=== PATIENT | male | born 1975 | race Caucasian/White ===

== ENCOUNTER 2024-08-09 07:44 | Emergency (ER) | payer SELFPAY ==
--- NOTE | 2024-08-09 07:35 | HMH.EDGENADL ---
Discharge Plan Disposition Patient Disposition: Home, Self-Care Chief Complaint: Seizure Activity Restrictions/Add. Instructions Additional Instructions/Restrictions: Due to being evaluated emergency department for seizure-like activity today, you must stop driving immediately. Per [place] law, you must be seizure-free for at least 90 days. Please follow-up with your family doctor or your neurologist prior to then to be cleared for driving. Do not swim alone or go swimming with no valve inspector, operate heavy machinery, or lock the bathroom door while bathing. Do not undertake activities such as water sports, climbing, or where there is injury if you were to fall. Do not bathe children by your self. Follow-up with your neurologist and primary care physician Clinical Impressions Clinical Impression: Seizure-like activity Instructions Patient Instructions: DI for Seizure Disorder -- Adult, DI for Seizure (Not Epilepsy/Seizure Disorder), DI for Seizure Disorder -- Child Print Language Print Language: Gabonese Discharge ED Provider: Alexys Fischer General Adult HPI General Chief complaint: Seizure Stated complaint: Seizure Time Seen by Provider: 08/09/24 07:46 Description of Symptoms (Recalled from ER Triage Doc. by RN): PT BROUGHT VIA EMS FROM [place], PT IS AN EMPLOYEE. STATES THIS AM HE WAS TAKING TRASH OUT OF RESIDENTS ROOM AND WAS FOUND ON THE FLOOR. PT WITH KNOWN HISTORY OF SEIZURES, REPORTED SEIZURE LASTED ABOUT 5 MINUTES. PT RETURNED TO BASELINE, BRAINFOG . DENIES PA OR INJURY. REPORTS DIARRHEA X 3 DAYS. WANTS TO BE CHECKED FOR COVID History of Present Illness HPI narrative: Malcolm Castañeda is a 48-year-old male with a history of epilepsy on Keppra and Vimpat, psychogenic seizures, insulin-dependent diabetes mellitus who presents to the emergency department for complaints of a seizure. Patient works at [employer] and states that he had just finished taking trash out of the patient's room when he reportedly had a 5-minute seizure. He does not remember the details of the seizures. He reports that he takes 2500 mg of Keppra twice daily and is followed by neurology at [facility]. He states that he has not missed any doses of his medications. He does report that he has had 3 days of nonbloody diarrhea but denies any fevers or vomiting. He did report some mild cough and wants to be checked for COVID. When EMS arrived, he is GCS 15 and remained GCS 15 and route. Fingerstick blood glucose was over 400 with EMS. Patient is reportedly back to his pre-seizure baseline. Related Data Allergies Allergy/AdvReac Type Severity Reaction Status Date / Time haloperidol Allergy stroke Verified 07/30/24 05:58 like symptoms meperidine [From Demerol] Allergy hallucinati Verified 07/30/24 05:58 ons midazolam [From Versed] Allergy combative Verified 07/30/24 05:58 [facility] Disclaimer: The information contained in this section may have been updated after the patient was seen, as this information can be updated by other users. Social History (Updated 07/30/24 @ 06:56 by Jerome Moore MD) Smoking Status: Current every day smoker alcohol intake: never current occupational status: employed Travel in the last 8 weeks: None ROS Obtained: Yes Systems reviewed as appropriate & no additional complaints except as documented Physical Exam General General appearance: alert and in no apparent distress Head Head exam: atraumatic Eye Eye exam: Present normal appearance ENT ENT exam: Present normal external ear exam Neck Neck exam: Present full ROM Chest Chest inspection: Present symmetric chest wall rise Respiratory Respiratory exam: Present normal lung sounds bilaterally; Absent respiratory distress Cardiovascular Cardiovascular exam: Present regular rate and normal rhythm Abdominal Exam Abdominal exam: Present soft and tenderness; Absent guarding Abdominal tenderness: Present diffuse and mild exam: Present deferred Extremities Exam Extremities exam: Present normal inspection Back Exam Back exam: Present normal inspection Neurological Exam Neurological exam: Present alert, oriented X3 and motor sensory deficit Expanded Neurological Exam Other motor function: Moving all extremities, no weakness Psychiatric Psychiatric exam: Present normal affect Skin Skin exam: Present warm and dry Other Other exam information: Dry mucous membranes Medical Decision Making Medical Records Medical records reviewed: Yes I reviewed the patient's medical records. Tj Inquiry Pt receiving controlled substance: No Vital Signs: 08/09/24 07:42 08/09/24 08:30 08/09/24 08:45 Temperature 97.8 F Temperature Source Oral Pulse Rate 73 79 Pulse Rate [Radial] 90 Respiratory Rate 18 13 13 Blood Pressure 132/60 136/75 Blood Pressure [Right Arm] 134/79 Blood Pressure Mean [Right Arm] 97 Blood Pressure Source [Right Arm] Automatic Cuff Blood Pressure Position [Right Arm] Sitting 02 Sat by Pulse Oximetry 97 97 97 Oxygen Delivery Method Room Air Lab Data Lab Results 08/09/24 07:38: WBC 7.9, RBC 4.75, Hgb 14.2, Hct 45.9, MCV 96.6 H, MCH 29.8, MCHC 30.9 L, RDW 13.5, Plt Count 316, MPV 8.7, Neut % (Auto) 67.5, Lymph % (Auto) 21.9, [place] % (Auto) 7.2, Eos % (Auto) 2.6, Baso % (Auto) 0.8, Neut # (Auto) 5.4, Lymph # (Auto) 1.7, [place] # (Auto) 0.6, Eos # (Auto) 0.2, Baso # (Auto) 0.1, Sodium 137, Potassium 4.2, Chloride 103, Carbon Dioxide 27, Anion Gap 11.2, BUN 13, Creatinine 0.50 L, Estimated Creat Clear 232, Estimated GFR 177, Est GFR ( Amer) 215, Glucose 356 H, Calcium 9.1, Magnesium 1.4 L, Total Bilirubin 0.4, AST 21, ALT 18, Alkaline Phosphatase 118, Total Protein 6.9, Albumin 3.9, Globulin 3.0, Albumin/Globulin Ratio 1.3 08/09/24 07:55: VBG pH 7.35, VBG pCO2 45.8, VBG pO2 45.0 H, VBG HCO3 24.4, VBG Total CO2 25.8, VBG O2 Saturation 82.1 H, VBG Base Excess -1.3, VBG Lactic Acid 2.2 H 08/09/24 07:58: SARS-CoV-2 (PCR) Not detected, Influenza A Untype (PCR) Not detected, Influenza Type B (PCR) Not detected 08/09/24 09:02: Urine Color Yellow, Urine Appearance Clear, Urine pH 6.0, Ur Specific [place] 1.015, Urine Protein Negative, Urine Glucose (UA) 3+, Urine Ketones Negative, Urine Blood Negative, Urine Nitrate Negative, Urine Bilirubin Negative, Urine Urobilinogen 0.2, Ur Leukocyte Esterase Negative, Urine RBC 3-5, Urine WBC Occasional, Ur Squamous Epith Cells Occasional, Urine Bacteria Trace 08/09/24 07:38 08/09/24 07:38 Orders (Tests/Meds): ED MEDICATIONS Discontinued Medications Generic Name Dose Route Start Last Admin Trade Name Freq PRN Reason Stop Dose Admin Lactated Ringer's 1,000 mls @ 999 mls/hr 08/09/24 07:55 08/09/24 08:06 Lactated Ringer's 1000 Ml Bag IV 08/09/24 08:55 999 mls/hr .Q1H1M ONE Administration Levetiracetam 2,000 mg/ Sodium 120 mls @ 240 mls/hr 08/09/24 07:55 08/09/24 08:15 Chloride IV 08/09/24 07:56 240 mls/hr ONCE ONE Administration Magnesium Sulfate 2 gm in 50 mls @ 50 mls/hr 08/09/24 08:19 08/09/24 08:40 Magnesium Sulfate 2gm/50ml Premix IV 08/09/24 09:18 50 mls/hr ONCE ONE Administration Ondansetron HCl 4 mg 08/09/24 08:30 08/09/24 08:40 Ondansetron 4mg/2ml Vial IV 08/09/24 08:31 4 mg ONCE ONE Administration ORDERS Category Date Time Status Acetone, Serum (Rapid) Stat Lab 08/09/24 07:38 Results CBC w/Auto Diff [Complete Blood Count Auto Diff] Stat Lab 08/09/24 07:38 Completed CMP [Comprehensive Metabolic Panel] Stat Lab 08/09/24 07:38 Results Magnesium Stat Lab 08/09/24 07:38 Results Rapid PCR Covid and Flu A/B Stat Lab 08/09/24 07:58 Completed Urinalysis and Microscopic Stat Lab 08/09/24 09:02 Completed Stool Culture Stat Micro 08/09/24 08:38 Ordered VBG [Venous Blood Gas] Stat RT 08/09/24 07:55 Completed Medical Decision Narrative: Malcolm Castañeda is a 48-year-old male with a history of epilepsy on Keppra and Vimpat, psychogenic seizures, insulin-dependent diabetes who presents to the emergency department for complaints of seizure while at work. He is also had 3 days of diarrhea. Concern for COVID due to a cough. Patient is currently at his baseline mental state. Neuroexam is unremarkable. Mild generalized abdominal tenderness without guarding or rebound. He has dry mucous membranes Differential diagnosis includes: Breakthrough seizure, psychogenic seizure, electrolyte derangement, DKA/HHS, hypoglycemia, hyperglycemia, viral enteritis, among others. Workup in the emergency department included: EKG, CBC, CMP, VBG with lactate, magnesium level, Acetone level. Patient was given a 2 g Keppra load as well as 1 L of IV lactated Ringer. VBG without acidosis, lactate mildly elevated at 2.2, no leukocytosis, CBC unremarkable nonactionable, no BERENICE, electrolytes within normal limits except for magnesium 1.4 (will replace with 2 g of IV magnesium sulfate), liver enzymes within normal limits, negative COVID, flu A/flu B. Urine unremarkable without evidence of infection EKG with normal sinus rhythm, no ST elevations or depressions, QTc 406. Patient had an episode in the emergency department where he was rhythmically moving his body back and forth but was alert and responding to questions throughout the event. This did not appear epileptic in nature. The episode resolved spontaneously without intervention. Patient was observed in the emergency department for over 2 hours and did not have a bowel movement during this time frame. It is felt that these episodes were likely pyschogenic in nature. Given this, it is felt that the patient is appropriate for discharge at this time and was instructed to follow up with his neurologist. Seizure precautions were given. All questions were answered. He was then discharged from the emergency department in stable condition. Critical Care Critical Care Time Critical Care Time: No
--- NOTE | 2024-08-09 07:41 | ECG_ITS ---
APPROVED REPORT Exam: Resting ECG HR:87 bpm ECG Measurements Heart Rate 87 AXES [place] 164 P 71 QRSd 89 QRS 110 QT 361 T 69 QTc 406 Conclusion Normal sinus rhythm. No ST elevation or depression. QTc 406 Electronically signed by : HILARIA URENA, 08/09/2024 10:43:30
[2024-08-09 07:42] VITALS: BP 134/79; PULSE 90; RESP 18; TEMP 36.6; O2SAT 97; BMI 26.4
--- NOTE | 2024-08-09 07:44 | PC.NURSE ---
FSBS was 357 at this time
--- NOTE | 2024-08-09 07:44 | PC.NURSE ---
Seizure pads placed on rails. Call light within reach.
--- NOTE | 2024-08-09 07:48 | PC.NURSE ---
DR URENA AT BEDSIDE
[2024-08-09 08:04] LABS: Coronavirus 19, PCR Not Detected (NotDetected); Influenza A, PCR Not Detected (NotDetected); Influenza B, PCR Not Detected (NotDetected)
[2024-08-09 08:06] LABS: VBG Base Excess -1.3 mmol/L (-2.4-2.3); VBG HCO3 24.4 mmol/L (23-30); VBG Oxygen Saturation 82.1 % (50-70); VBG PCO2 45.8 mmol/L (35-51); VBG PH 7.35 mmol/L (7.31-7.41); VBG Total CO2 25.8 mmol/L (23-27)
[2024-08-09] MEDS: LACTATED RINGERS 1000ML 1,000 ML 999 ML IV (08:06)
[2024-08-09 08:07] LABS: Lactate Venous 2.2 mmol/L (0.4-2.0)
[2024-08-09 08:10] LABS: Basophils # 0.1 K/mm3 (0-0.2); Basophils % 0.8 % (0.1-2.0); Eosinophils # 0.2 K/mm3 (0.0-0.4); Eosinophils % 2.6 % (0.1-12.0); Hematocrit 45.9 % (42.0-52.0); Hemoglobin 14.2 g/dL (14.1-18.0); Lymphocytes # 1.7 K/mm3 (0.7-4.5); Lymphocytes % 21.9 % (10-50); Mean Corpuscular HGB Conc 30.9 g/dL (31.8-35.4); Mean Corpuscular Hemoglobin 29.8 pg (27.0-31.2); Mean Corpuscular Volume 96.6 fl (80-94); Mean Platelet Volume 8.7 fl (7.4-10.4); Monocytes # 0.6 K/mm3 (0.1-1.0); Monocytes % 7.2 % (1.7-9.3); Neutrophils # 5.4 K/mm3 (1.8-7.8); Neutrophils % 67.5 % (37.0-80.0); Platelet Count 316 K/mm3 (142-424); Red Blood Count 4.75 M/mm3 (4.60-6.20); Red Cell Distribution Width 13.5 % (11.5-17.5); White Blood Count 7.9 K/mm3 (4.8-10.8)
[2024-08-09] MEDS: levETIRAcetam 2,000 MG in 0.9 % SODIUM CHLORIDE 100 ML 240 MG IV (08:15)
[2024-08-09 08:16] LABS: Alanine Aminotransferase 18 U/L (12-78); Albumin Level 3.9 g/dl (3.5-5.0); Albumin/Globulin Ratio 1.3 (1.1-1.8); Alkaline Phosphatase 118 U/L (38-126); Anion Gap 11.2 mEq/L (5-15); Aspartate Amino Transferase 21 U/L (17-59); Bilirubin,Total 0.4 mg/dl (0.2-1.3); Blood Urea Nitrogen 13 mg/dl (9-20); Calcium 9.1 mg/dl (8.4-10.2); Carbon Dioxide 27 mmol/L (22.0-30.0); Chloride 103 mmol/L (98-107); Creatinine Clearance Estimated 232 mL/min (50-200); Estimated Glomerular Filt Rate 177 ml/min (>60); GFR (African American) 215 ML/MIN (>60); Glucose 356 mg/dl (74-100); Magnesium 1.4 mg/dl (1.6-2.3); Potassium 4.2 mmoL/L (3.5-5.1); Sodium 137 mmol/L (136-145); Total Protein,Serum 6.9 g/dl (6.3-8.2)
[2024-08-09 08:30] VITALS: BP 132/60; PULSE 73; RESP 13; O2SAT 97
--- NOTE | 2024-08-09 08:37 | PC.NURSE ---
PT AND UPDATED ON POC. INSTRUCTED PT TO CALL FOR STAFF FOR ASSISTANCE TO PROVIDE URINE AND STOOL SAMPLE. PT REPORTS HE IS UNABLE TO PROVIDE STOOL SAMPLE HE HAS NOTHING IN ME
[2024-08-09] MEDS: ONDANSETRON 4MG/2ML VIAL 4 MG IV (08:40)
[2024-08-09] MEDS: MAGNESIUM SULFATE IN WATER 2 GM/50 ML PIGGYBACK IV (08:40)
[2024-08-09 08:45] VITALS: BP 136/75; PULSE 79; RESP 13; O2SAT 97
--- NOTE | 2024-08-09 08:45 | PC.NURSE ---
Rounded on PT, PT stated he doesn't need anything at the moment. PT was given a urinal for a urine sample. Call light in reach of PT
[2024-08-09 09:10] LABS: Microscopic, Urine URINE MICROSCOPIC (MICROSCOPIC)
[2024-08-09 09:15] LABS: Appearance,Urine CLEAR (Clear); Bilirubin,Urine Negative (Negative); Blood, Urine Negative (Negative); Color,Urine YELLOW (Yellow); Glucose,Urine (UA) 3+ (Negative); Ketones,Urine Negative (Negative); Leukocyte Esterase,Urine Negative (Negative); Nitrate,Urine Negative (Negative); Protein,Urine Negative (Negative); Specific Gravity, Urine 1.015 (1.005-1.030); Urobilinogen,Urine 0.2 EU/dl (0.2)
--- NOTE | 2024-08-09 09:30 | PC.NURSE ---
ROUNDED ON PT, RESTING IN BED. OFFERED BLANKET AD TV REMOTE. NO NEEDS AT THIS TIME
[2024-08-09 09:51] LABS: Bacteria,Urine Trace /lpf; WBC,Urine Occasional #/hpf (0-3)
[2024-08-09 09:52] LABS: Squamous Epithelial Cell,Urine Occasional #/hpf (0-5)
[2024-08-09 10:32] VITALS: BP 127/74; PULSE 85; RESP 18; TEMP 36.7; O2SAT 97
[2024-08-09 10:44] LABS: Acetone, Serum (Rapid) None Detected (None Detect)
[2024-08-09 12:07] LABS: Reflex Lactic Add Lactic Reflex
== END 2024-08-09 10:38 | disposition home or self-care (01) ==
PROVIDERS: Emergency Provider Student in an Organized Health Care Education/Training Program
DX: R56.9 Unspecified convulsions (principal); R19.7 Diarrhea, unspecified; E83.42 Hypomagnesemia; R73.9 Hyperglycemia, unspecified; F17.210 Nicotine dependence, cigarettes, uncomplicated
CPT/HCPCS: 80053; 81001; 82009; 82803; 83735; 85025; 87636; 93005; 96365; 96375; 99284; J1953; J2405; J3475; J7120